=== PATIENT | male | born 1950 | race Caucasian/White ===

== ENCOUNTER → 2021-04-05 08:18 | Outpatient (CLI) | payer MEDICARE, SELFPAY ==
[2021-04-05 09:36] LABS: Alanine Aminotransferase 22 IU/L (<50); Albumin 3.7 g/dL (3.5-5.0); Albumin Globulin Ratio 1.3 (1.0-2.8); Alkaline Phosphatase 81 U/L (38-126); Aspartate Aminotransferase 35 IU/L (17-59); BUN Creatinine Ratio 22.4 (6-22); Bilirubin Total 0.5 mg/dL (0.2-1.3); Blood Urea Nitrogen 17 mg/dL (9-20); Calcium 9.3 mg/dL (8.4-10.2); Carbon Dioxide 28 mmol/L (22-32); Chloride 105 mmol/L (98-107); Cholesterol 210 mg/dL (140-199); Estimated Glomerular Filt Rate > 60.0 mL/min (>60); Globulin 2.8 g/dL (1.7-4.1); Glucose 89 mg/dL (80-110); HDL Cholesterol 57 mg/dL (40-60); HEMOLYSIS < 15 (0-50); LDL Cholesterol Calculated 117 mg/dL (<100); Sodium 139 mmol/L (137-145); Total Protein 6.5 g/dL (6.3-8.2); Triglycerides 182 mg/dL (35-150); Uric Acid 6.9 mg/dL (3.5-8.5)
== END ==
PROVIDERS: PCP Internal Medicine; Referring Provider Internal Medicine; Visit Provider Internal Medicine
DX: Z13.1 Encounter for screening for diabetes mellitus (principal); Z13.6 Encounter for screening for cardiovascular disorders; Z12.5 Encounter for screening for malignant neoplasm of prostate; Z13.220 Encounter for screening for lipoid disorders
CPT/HCPCS: 36415; 80053; 80061; 84550; G0103

== ENCOUNTER → 2021-05-20 14:04 | Outpatient (CLI) | payer MEDICARE, SELFPAY ==
[2021-05-20 14:24] LABS: Add Manual Diff / Slide Review NO; Basophils Absolute Auto 100 /uL (0-100); Basophils Percent Auto 0.9 % (0-2); Eosinophils Absolute Auto 100 /uL (0-450); Eosinophils Percent Auto 1.2 % (2-4); Hematocrit 43.4 % (41-53); Hemoglobin 14.4 g/dL (13.5-17.5); Lymphocytes Absolute Auto 1300 /uL (1100-4500); Lymphocytes Percent Auto 17.5 % (25-40); Mean Corpuscular HGB Conc 33.2 % (30-36); Mean Corpuscular Hemoglobin 31.9 PG (26-34); Mean Corpuscular Volume 95.8 fL (80-100); Monocytes Absolute Auto 600 /uL (0-900); Monocytes Percent Auto 7.9 % (3-14); Neutrophils Absolute Auto 5200 /uL (1500-7000); Neutrophils Percent Auto 72.5 % (50-75); Platelet Count 190 X10^3/uL (150-400); Red Blood Cell Count 4.53 X10^6/uL (4.5-5.9); White Blood Cell Count 7.2 X10^3/uL (4.5-11.0)
[2021-05-20 14:45] LABS: Alanine Aminotransferase 33 IU/L (<50); Albumin 4.6 g/dL (3.5-5.0); Albumin Globulin Ratio 1.6 (1.0-2.8); Alkaline Phosphatase 80 U/L (38-126); Aspartate Aminotransferase 42 IU/L (17-59); Bilirubin Total 0.7 mg/dL (0.2-1.3); Bilirubin Unconjugated 0.6 mg/dL (0.0-1.1); Globulin 2.8 g/dL (1.7-4.1); HEMOLYSIS < 15 (0-50); Total Protein 7.4 g/dL (6.3-8.2)
== END ==
PROVIDERS: PCP Internal Medicine; Referring Provider Naturopath; Visit Provider Naturopath
DX: B35.3 Tinea pedis (principal)
CPT/HCPCS: 36415; 80076; 85025

== ENCOUNTER → 2021-08-19 14:01 | Outpatient (CLI) | payer MEDICARE, SELFPAY ==
[2021-08-19 16:21] LABS: Alanine Aminotransferase 28 IU/L (<50); Albumin 4.4 g/dL (3.5-5.0); Albumin Globulin Ratio 1.5 (1.0-2.8); Alkaline Phosphatase 79 U/L (38-126); Aspartate Aminotransferase 36 IU/L (17-59); Bilirubin Total 0.6 mg/dL (0.2-1.3); Bilirubin Unconjugated 0.5 mg/dL (0.0-1.1); Globulin 2.9 g/dL (1.7-4.1); HEMOLYSIS < 15 (0-50); Total Protein 7.3 g/dL (6.3-8.2)
== END ==
PROVIDERS: PCP Internal Medicine; Referring Provider Physician Assistant; Visit Provider Physician Assistant
DX: B35.1 Tinea unguium (principal)
CPT/HCPCS: 36415; 80076

== ENCOUNTER → 2024-11-04 16:43 | Outpatient (CLI) | payer MEDICARE, SELFPAY ==
[2024-11-04 17:31] LABS: Influenza A - CEPHEID Flu A POSITIVE (NEGATIVE); Influenza B - CEPHEID Flu B NEGATIVE (NEGATIVE); Respiratory Syncytial Virus Negative (Negative)
[2024-11-04 17:33] LABS: COVID-19 CEPHEID 4-PLEX PCR Negative (Negative)
== END ==
PROVIDERS: PCP Internal Medicine; Visit Provider Physician Assistant Surgical
DX: R06.02 Shortness of breath (principal)
CPT/HCPCS: 0241U

== ENCOUNTER → 2024-11-04 16:59 | Outpatient (CLI) | payer MEDICARE, SELFPAY ==
--- NOTE | 2024-11-04 17:01 | DI.RAD.S_ITS ---
PROCEDURE: XR CHEST 2V INDICATIONS: Cough, SOB TECHNIQUE: 2 views of the chest were acquired. COMPARISON: None. FINDINGS: Surgical changes and devices: None. Lungs and pleura: Patchy bilateral opacities. Mediastinum: Mediastinal contours are normal. Heart size is normal. Bones and chest wall: No suspicious bony abnormalities. Soft tissues appear unremarkable. IMPRESSION: Patchy bilateral passages concerning for multifocal pneumonia. Recommend follow-up in 1-2 months with chest x-ray to ensure resolution. Dictated by: Juan Armstrong M.D. on 11/04/2024 at 17:42 Approved by: Juan Armstrong M.D. on 11/04/2024 at 17:42
== END ==
PROVIDERS: PCP Internal Medicine; Referring Provider Physician Assistant Surgical; Visit Provider Physician Assistant Surgical
DX: R05.9 Cough, unspecified (principal); R06.02 Shortness of breath
CPT/HCPCS: 0241U; 71046

== ENCOUNTER 2024-11-11 14:55 | Inpatient (IN) | payer MEDICARE, SELFPAY ==
[2024-11-11] VITALS (17 sets, daily range): BP systolic 124–166; BP diastolic 73–100; PULSE 65–95; RESP 12–30; TEMP 36.7–37.2; O2SAT 87–97; BMI 26.6; BMI 25.2
--- NOTE | 2024-11-11 15:05 | DI.RAD.S_ITS ---
PROCEDURE: XR CHEST 1V INDICATIONS: Shortness of breath TECHNIQUE: One view of the chest was acquired. COMPARISON: [facility], , XR CHEST 2V, 11/04/2024, 17:06. FINDINGS: Surgical changes and devices: None. Lungs and pleura: Bilateral patchy pulmonary opacities, not significantly changed in distribution when compared to the exam from 11/04/2024. No pleural effusion or pneumothorax. Mediastinum: Mediastinal contours appear normal. Heart size is normal. Bones and chest wall: No suspicious bony lesions. Overlying soft tissues appear unremarkable. IMPRESSION: Persistent patchy airspace opacities. Approved by: Froilan Martínez M.D. on 11/11/2024 at 15:29
--- NOTE | 2024-11-11 15:10 | EKG_ITS ---
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
[2024-11-11 15:28] LABS: Add Manual Diff / Slide Review NO; Basophils Absolute Auto 100 /uL (0-100); Eosinophils Absolute Auto 100 /uL (0-450); Eosinophils Percent Auto 0.9 % (2-4); Hematocrit 39.3 % (41-53); Hemoglobin 13.6 g/dL (13.5-17.5); Lymphocytes Absolute Auto 700 /uL (1100-4500); Lymphocytes Percent Auto 7.4 % (25-40); Mean Corpuscular HGB Conc 34.5 % (30-36); Mean Corpuscular Hemoglobin 31.5 PG (26-34); Mean Corpuscular Volume 91.1 fL (80-100); Monocytes Absolute Auto 1400 /uL (0-900); Monocytes Percent Auto 14.9 % (3-14); Neutrophils Absolute Auto 7100 /uL (1500-7000); Neutrophils Percent Auto 75.8 % (50-75); Platelet Count 492 X10^3/uL (150-400); Red Blood Cell Count 4.31 X10^6/uL (4.5-5.9); Red Cell Distribution Width 12.8 % (11.6-14.8); White Blood Cell Count 9.4 X10^3/uL (4.5-11.0)
[2024-11-11 15:33] LABS: INR 1.2 (0.9-1.3)
[2024-11-11 15:41] LABS: Alanine Aminotransferase 110 IU/L (<50); Albumin 3.7 g/dL (3.5-5.0); Albumin Globulin Ratio 0.9 (1.0-2.8); Alkaline Phosphatase 187 U/L (38-126); Aspartate Aminotransferase 93 IU/L (17-59); BUN Creatinine Ratio 12.9 (6-22); Bilirubin Total 1.7 mg/dL (0.2-1.3); Blood Urea Nitrogen 12 mg/dL (9-20); Carbon Dioxide 27 mmol/L (22-32); Chloride 96 mmol/L (98-107); Estimated Glomerular Filt Rate > 60 mL/min (>60); Globulin 3.9 g/dL (1.7-4.1); Glucose 109 mg/dL (80-110); HEMOLYSIS < 15 (0-50); Potassium 3.5 mmol/L (3.4-5.1); Sodium 132 mmol/L (137-145); Total Protein 7.6 g/dL (6.3-8.2)
[2024-11-11 15:42] LABS: Lactate (Lactic Acid) 1.3 mmol/L (0.7-2.1)
[2024-11-11 15:51] LABS: NT-proBNP (BNP-Adult 18+) 100 pg/mL (<125); Troponin I < 0.012 ng/mL (0.01-0.034)
--- NOTE | 2024-11-11 18:16 | ED.SOB ---
HPI - SOB/Dyspnea General Chief Complaint: Shortness of Breath/Dyspnea Stated Complaint: states low o2 sats Time Seen by Provider: 11/11/24 17:57 Source: patient Mode of arrival: Ambulatory Limitations: no limitations History of Present Illness HPI Narrative: Patient is 74-year-old male presenting today with low-grade intermittent fevers for 1 week some mild nasal congestion reports a productive cough that started 2 days ago. Feeling more short of breath with exertion. He was seen evaluated at walk-in clinic on November 04 2024 started on amoxicillin and azithromycin. Is positive for influenza A at that time and also had an x-ray suggestive of multifocal pneumonia. He reports he is having increasing shortness of breath with exertion he was some conversational dyspnea. He generally feels like he has not improved over the course of 1 week. He only has a couple days left of the amoxicillin but finished a Z-Jose. He has been in bed not really getting up. Found to be hypoxic at 86% on room air in the ED. does have decrease in appetite as well. Related Data Previous Rx's Medication Instructions Recorded benzonatate 200 mg capsule 200 mg PO BID PRN cough #30 caps 11/04/24 Allergies Allergy/AdvReac Type Severity Reaction Status Date / Time No Known Drug Allergies Allergy Verified 11/11/24 14:54 Patient History Medical History Fractures (~1971) Surgical History Anesthesia History of arthroscopic knee surgery (~2007) History of hernia repair (~2016) S/P LASIK surgery of both eyes (~2005) Family History Father History of heart disease Mother Cancer Congestive heart failure Social History household members: none Smoking Status: Current some day smoker alcohol intake: current Smoking Status: Never smoker Exam Initial Vital Signs Initial Vital Signs: Vital Signs Pulse Rate 87 11/11/24 15:01 Respiratory Rate 30 H 11/11/24 15:01 Pulse Oximetry 87 L 11/11/24 15:01 Oxygen Delivery Method Room Air 11/11/24 15:01 GENERAL: Alert awake 74-year-old male HEENT: Head atraumatic,EOMI, pupils reactive, face symmetric, moist mucous membranes CARDIOVASCULAR: Regular rate and rhythm without murmurs, rubs or gallops. RESPIRATORY: Mild conversational dyspnea no significant wheezing no crackles ABDOMEN: Soft, nontender. Normoactive bowel sounds all 4 quadrants. No guarding or rebound. EXTREMITIES: Normal range of motion, no clubbing or edema. Neurovascularly intact NEUROLOGICAL: Alert and oriented x4.Normal gait and speech. Cranial nerves II through XII grossly intact. SKIN: Warm, dry, no laceration, no petechiae, no rashes or lesions. Course Orders Ordered: ED Orders 11/11/24 18:28 CT angio chest PE protocol Stat 11/11/24 18:50 Blood Culture Stat Acetaminophen (Acetaminophen 325 Mg Tablet) 650 mg PO Q6H PRN PRN Reason: Fever/Mild Pain (1-3) Enoxaparin Sodium (Enoxaparin 40 Mg/0.4 Ml Syringe) 40 mg SUBCUT DAILY KARLI Levofloxacin (Levaquin) 750 mg in 150 mls @ 100 mls/hr IV Q24H [facility] Stop: 11/16/24 19:59 Naloxone HCl (Naloxone 0.4 Mg/Ml Vial) 0.2 mg IV Q2MIN PRN PRN Reason: Opiate Reversal Discontinued Medications Albuterol (Albuterol 2.5 Mg/3 Ml Neb (Adult)) 2.5 mg INH NOW ONE Stop: 11/11/24 18:29 Last Admin: 11/11/24 18:35 Dose: 2.5 mg Documented By: JOSEPH Levofloxacin (Levaquin) 750 mg in 150 mls @ 100 mls/hr IV NOW ONE Stop: 11/11/24 21:32 Last Infusion: 11/11/24 21:57 Dose: Infused Documented By: Infusion: 11/11/24 20:58 Dose: 100 mls/hr Documented By: Admin: 11/11/24 20:14 Dose: 100 mls/hr Documented By: ZAFAR Vital Signs Vital signs: Vital Signs - 8 hr 11/11/24 17:00 11/11/24 17:30 11/11/24 17:43 Pulse Rate 80 81 84 Respiratory Rate 22 12 23 Blood Pressure Pulse Oximetry 97 92 92 Oxygen Delivery Method Nasal Cannula Nasal Cannula Nasal Cannula Oxygen Flow Rate 2 2 2 11/11/24 17:43 11/11/24 18:00 11/11/24 18:00 Pulse Rate 82 Respiratory Rate 20 Blood Pressure 133/78 124/73 Pulse Oximetry 94 Oxygen Delivery Method Nasal Cannula Oxygen Flow Rate 2 11/11/24 18:30 11/11/24 18:30 11/11/24 19:38 Pulse Rate 93 H 95 H Respiratory Rate 23 Blood Pressure 149/78 H Pulse Oximetry 94 93 Oxygen Delivery Method Nasal Cannula Oxygen Flow Rate 2 11/11/24 19:39 11/11/24 19:39 11/11/24 20:00 Pulse Rate 94 H 94 H Respiratory Rate 18 15 Blood Pressure 143/83 H Pulse Oximetry 94 93 Oxygen Delivery Method Nasal Cannula Nasal Cannula Oxygen Flow Rate 2 2 11/11/24 20:00 Pulse Rate Respiratory Rate Blood Pressure 143/87 H Pulse Oximetry Oxygen Delivery Method Oxygen Flow Rate MDM - SOB/Dyspnea Lab Data 11/11/24 15:18 11/11/24 15:18 Labs: Lab Results 11/11/24 Range/Units 15:18 WBC 9.4 (4.5-11.0) X10^3/uL RBC 4.31 L (4.5-5.9) X10^6/uL Hgb 13.6 (13.5-17.5) g/dL Hct 39.3 L (41-53) % MCV 91.1 (80-100) fL MCH 31.5 (26-34) PG MCHC 34.5 (30-36) % RDW 12.8 (11.6-14.8) % Plt Count 492 H (150-400) X10^3/uL Neut % (Auto) 75.8 H (50-75) % Lymph % (Auto) 7.4 L (25-40) % [place] % (Auto) 14.9 H (3-14) % Eos % (Auto) 0.9 L (2-4) % Baso % (Auto) 1.0 (0-2) % Neut # (Auto) 7100 H (5992-3977) /uL Lymph # (Auto) 700 L (1889-6799) /uL [place] # (Auto) 1400 H (0-900) /uL Eos # (Auto) 100 (0-450) /uL Baso # (Auto) 100 (0-100) /uL PT 14.0 H (9.4-12.5) SECONDS INR 1.2 (0.9-1.3) Sodium 132 L (137-145) mmol/L Potassium 3.5 (3.4-5.1) mmol/L Chloride 96 L (98-107) mmol/L Carbon Dioxide 27 (22-32) mmol/L BUN 12 (9-20) mg/dL Creatinine 0.93 (0.66-1.25) mg/dL Estimated GFR > 60 (>60) mL/min BUN/Creatinine Ratio 12.9 (6-22) Glucose 109 (80-110) mg/dL Lactate 1.3 (0.7-2.1) mmol/L Calcium 8.0 L (8.4-10.2) mg/dL Total Bilirubin 1.7 H (0.2-1.3) mg/dL AST 93 H (17-59) IU/L ALT 110 H (<50) IU/L Alkaline Phosphatase 187 H (38-126) U/L Troponin I < 0.012 (0.01-0.034) ng/mL NT-Pro-B Natriuret Pep 100 (<125) pg/mL Total Protein 7.6 (6.3-8.2) g/dL Albumin 3.7 (3.5-5.0) g/dL Globulin 3.9 (1.7-4.1) g/dL Albumin/Globulin Ratio 0.9 L (1.0-2.8) Imaging Data Chest x-ray: Radiologist's Impression: PROCEDURE: XR CHEST 1V INDICATIONS: Shortness of breath TECHNIQUE: One view of the chest was acquired. COMPARISON: [facility], , XR CHEST 2V, 11/04/2024, 17:06. FINDINGS: Surgical changes and devices: None. Lungs and pleura: Bilateral patchy pulmonary opacities, not significantly changed in distribution when compared to the exam from 11/04/2024. No pleural effusion or pneumothorax. Mediastinum: Mediastinal contours appear normal. Heart size is normal. Bones and chest wall: No suspicious bony lesions. Overlying soft tissues appear unremarkable. IMPRESSION: Persistent patchy airspace opacities. Approved by: Froilan Martínez M.D. on 11/11/2024 at 15:29 CT scan - chest: Radiologist's Impression: PROCEDURE: CT ANGIO CHEST PE PROTOCOL INDICATIONS: hypoxia TECHNIQUE: After the administration of intravenous contrast, 2 mm thick sections acquired from the pulmonary apices to the posterior costophrenic angles. 3-dimensional maximum intensity projection (MIP) coronal and sagittal reformats were then acquired through the thorax. For radiation dose reduction, the following was used: automated exposure control, adjustment of mA and/or kV according to patient size. COMPARISON: None. FINDINGS: Image quality: Diagnostic. Pulmonary arteries: Pulmonary arteries are normal in size, and demonstrate no intraluminal filling defects to suggest central pulmonary embolism. Lower Neck: No enlarged lymph nodes. Thyroid: No thyroid nodules which require sonographic follow up, per consensus guidelines. Axillae: No enlarged lymph nodes. Chest Wall: Unremarkable. Bones: Irregular attenuation the T7 vertebral body. Lungs and Pleura: No pneumothorax or pleural effusions. Peripheral consolidation affecting all lobes. Heart: Heart size is normal. No pericardial effusion. Thoracic Vessels: No aortic aneurysm. Mediastinum and Joana: No enlarged lymph nodes. Esophagus: No wall thickening. Small hiatal hernia. Upper Abdomen: Visualized upper abdomen solid organs and bowel loops appear normal. IMPRESSION: No pulmonary embolus. Severe multifocal viral/atypical pneumonia. Heterogeneous attenuation of the T7 vertebral body, raises the concern for underlying bony lesions such as metastatic disease. Consider outpatient MRI with contrast (thoracic spine). Dictated by: Juan Armstrong M.D. on 11/11/2024 at 19:50 ECG Data Attestation: I personally reviewed and interpreted this ECG as follows: Prior ECG tracings: available for review Interpretation: Normal sinus rhythm rate 69 FL interval 172 QRS [address] changes no priors to compare T-wave inversion noted in lead 3 only MDM Narrative Medical decision making narrative: MDM CC: Shortness of breath Complicating co-morbidities: Healthy male Medical records reviewed: Walk-in clinic records reviewed he was placed on amoxicillin however patient says that he was also given a Z-Jose. He did test positive for influenza A at that visit Differential considered: Pneumonia CHF pulmonary embolism reactive airway disease Exam documented above, pertinent findings include: Awake alert 74-year-old male mild conversational dyspnea no significant tachypnea no peripheral edema Lab Test results independently reviewed as above. Pertinent findings: WBC 9.4, lactate 1.3 Sodium 132 potassium 3.5 chloride 96 carbon dioxide 27 BUN 12 creatinine 0.93 BNP 100 troponin negative Independently reviewed EKG as above Imaging studies independently reviewed: Chest x-ray patchy airspace opacities CT angio does not show evidence of pulmonary embolism but does show severe multifocal pneumonia Consultations: Dr. Lopez updated on patient's symptoms test results Treatments: Levaquin albuterol Re-evaluations: Patient was given albuterol he does feel like he can take a deeper breath a noticed less conversational dyspnea and reactive coughing Discussion: Patient is 74-year-old male with known infection of influenza a and pneumonia already been on amoxicillin azithromycin presenting today with increasing hypoxia and shortness of breath. He was found to have severe multifocal pneumonia along with influenza a requiring oxygen. Surprisingly blood work is overall reassuring without signs of severe sepsis. Blood cultures are pending. He was given a dose of IV Levaquin, after already being on amoxicillin and azithromycin. Discharge Plan Departure Patient Disposition: Admitted As Inpatient Clinical Impression: Influenza A, Pneumonia, Hypoxia Admit Date/Time: 11/11/24 20:17 Admit Provider: Doris Martinez
--- NOTE | 2024-11-11 18:28 | DI.CT.S_ITS ---
PROCEDURE: CT ANGIO CHEST PE PROTOCOL INDICATIONS: hypoxia TECHNIQUE: After the administration of intravenous contrast, 2 mm thick sections acquired from the pulmonary apices to the posterior costophrenic angles. 3-dimensional maximum intensity projection (MIP) coronal and sagittal reformats were then acquired through the thorax. For radiation dose reduction, the following was used: automated exposure control, adjustment of mA and/or kV according to patient size. COMPARISON: None. FINDINGS: Image quality: Diagnostic. Pulmonary arteries: Pulmonary arteries are normal in size, and demonstrate no intraluminal filling defects to suggest central pulmonary embolism. Lower Neck: No enlarged lymph nodes. Thyroid: No thyroid nodules which require sonographic follow up, per consensus guidelines. Axillae: No enlarged lymph nodes. Chest Wall: Unremarkable. Bones: Irregular attenuation the T7 vertebral body. Lungs and Pleura: No pneumothorax or pleural effusions. Peripheral consolidation affecting all lobes. Heart: Heart size is normal. No pericardial effusion. Thoracic Vessels: No aortic aneurysm. Mediastinum and Joana: No enlarged lymph nodes. Esophagus: No wall thickening. Small hiatal hernia. Upper Abdomen: Visualized upper abdomen solid organs and bowel loops appear normal. IMPRESSION: No pulmonary embolus. Severe multifocal viral/atypical pneumonia. Heterogeneous attenuation of the T7 vertebral body, raises the concern for underlying bony lesions such as metastatic disease. Consider outpatient MRI with contrast (thoracic spine). Dictated by: Juan Armstrong M.D. on 11/11/2024 at 19:50 Approved by: Juan Armstrong M.D. on 11/11/2024 at 19:53
[2024-11-11] MEDS: ALBUTEROL 2.5 MG/3 ML NEB (ADULT) INH (18:35)
[2024-11-11] MEDS: levoFLOXacin 750 MG/150 ML PIGGYBACK 100 MG IV (20:14)
[2024-11-12] VITALS (8 sets, daily range): BP systolic 120–150; BP diastolic 71–84; PULSE 50–78; RESP 18–21; TEMP 26.6–36.8; O2SAT 93–96
[2024-11-12] MEDS: ENOXAPARIN 40 MG/0.4 ML SYRINGE SUBCUT (09:57)
[2024-11-12] MEDS: cefTRIAXone 1,000 MG in SODIUM CHLORIDE 0.9% 100 ML 200 MG IV (09:58)
--- NOTE | 2024-11-12 10:47 | P.HP_ITS ---
History of Present Illness History of Present Illness Date Patient Seen: 11/12/24 Time Patient Seen: 08:30 Chief complaint: states low o2 sats Narrative: S: The patient has been ill for 10-14 days. He initially had viral symptoms consistent with flu as well as profound fatigue and anorexia. Also was somewhat short of breath. He tested positive for influenza about a week ago. He was given oral antibiotics for possible infiltrates on x-ray at the urgent care and really failed to improve. He bought an oximeter yesterday and found his saturations to be 84% on room air. He presented to the urgent care and then was transferred to the ED. There he was found to have bilateral infiltrates but a CTA was negative for pulmonary embolism. He was started on antibiotics. RLS: Cough, mostly nonproductive. Dyspnea on exertion. General fatigue, and severe anorexia. No diarrhea. This patient was initially not admitted to the hospitalist service, I found out about the patient from that service on the morning of November 12 at approximately 8:00 a.m.. No documentation other than the emergency physician was in the record when I assumed care of the patient. REPLACED BY [facility] Medical History Fractures (~1971) Surgical History Anesthesia S/P LASIK surgery of both eyes (~2005) History of arthroscopic knee surgery (~2007) History of hernia repair (~2016) Family History Father History of heart disease Mother Cancer Congestive heart failure Social History household members: none Smoking Status: Current some day smoker alcohol intake: current Meds Home Medications and Allergies Home Medications Medication Instructions Recorded Confirmed Type benzonatate 200 mg capsule 200 mg PO BID PRN cough #30 caps 11/04/24 11/11/24 Rx Allergies Allergy/AdvReac Type Severity Reaction Status Date / Time No Known Drug Allergies Allergy Verified 11/11/24 14:54 Review of Systems Review of Systems Narrative: All else reviewed and otherwise unremarkable except as noted in the history and physical. Exam Vital Signs (past 8 hours): - 11/12/24 04:00 11/12/24 07:23 11/12/24 08:00 Temperature 98.2 F Pulse Rate 50 L Respiratory Rate 19 Blood Pressure 122/76 Pulse Oximetry 96 96 Oxygen Delivery Method Nasal Cannula Nasal Cannula Oxygen Flow Rate 2.5 2.5 11/12/24 08:00 Temperature 97.8 F Pulse Rate 74 Respiratory Rate 18 Blood Pressure 150/71 H Pulse Oximetry 94 Oxygen Delivery Method Oxygen Flow Rate 2 Oxygen Delivery Method Nasal Cannula Oxygen Flow Rate 2 Narrative Exam Narrative: NAD, alert and oriented, fluent speech, calm. Normocephalic skull, EOMI, anicteric sclera, symmetric pupils. Oropharynx unremarkable, no droop. Neck supple, midline trachea, no adenopathy. Lungs are notable for scattered rhonchi and diminished breath sounds in the bases, normal rate and effort. Heart regular, no murmur gallop or rub. Abdomen is soft, non distended and non tender. Extremities are free of edema. Skin is free of rash or lesions. Joints are not swollen or deformed. Judgment appears to be normal. Objective ECG Impression: Sinus rhythm with premature atrial complexes Minimal voltage criteria for LVH, may be normal variant ( R in aVL ) Imaging Multiple studies:: Radiologist's impression: Chest x-ray: Persistent patchy airspace opacities.). Chest CTA: No pulmonary embolus. Severe multifocal viral/atypical pneumonia. Heterogeneous attenuation of the T7 vertebral body, raises the concern for underlying bony lesions such as metastatic disease. Consider outpatient MRI with contrast (thoracic spine). Labs 11/11/24 15:18 11/11/24 15:18 Labs: Laboratory Results - last 24 hr 11/11/24 15:18 WBC 9.4 RBC 4.31 L Hgb 13.6 Hct 39.3 L MCV 91.1 MCH 31.5 MCHC 34.5 RDW 12.8 Plt Count 492 H Neut % (Auto) 75.8 H Lymph % (Auto) 7.4 L [place] % (Auto) 14.9 H Eos % (Auto) 0.9 L Baso % (Auto) 1.0 Neut # (Auto) 7100 H Lymph # (Auto) 700 L [place] # (Auto) 1400 H Eos # (Auto) 100 Baso # (Auto) 100 PT 14.0 H INR 1.2 Sodium 132 L Potassium 3.5 Chloride 96 L Carbon Dioxide 27 BUN 12 Creatinine 0.93 Estimated GFR > 60 BUN/Creatinine Ratio 12.9 Glucose 109 Lactate 1.3 Calcium 8.0 L Total Bilirubin 1.7 H AST 93 H ALT 110 H Alkaline Phosphatase 187 H Troponin I < 0.012 NT-Pro-B Natriuret Pep 100 Total Protein 7.6 Albumin 3.7 Globulin 3.9 Albumin/Globulin Ratio 0.9 L Assessment & Plan Assessment & Plan narrative: 1. Influenza a, present on admission and active. 2. Probable secondary bacterial pneumonia, present on admission and active. 3. Possible T7 compression fracture versus other acute process, present on admission and active. Plan: -continue IV antibiotics -wean oxygen as able. -follow up blood cultures. -assess for thoracic pain. LOURDES is November 14. Time-Based Coding :: 40 min spent with patient and on the chart (including review of chart, obtaining history, exam, reviewing outside data, placing orders, documenting exam and treatment plan, and counseling patient) on 11/12. Quality MIPS - Admit I confirm the patient?s Advance Care Plan is present, Code status is documented, Surrogate decision maker is in patient?s record [If Yes, STOP here]: Yes MIPS - Meds 'Current medications' to include all prescriptions, [id number] products, herbals, cannabis/cannabidiol products, and vitamin/mineral/dietary (nutritional) supplements. I have utilized all available resources to obtain, update, or review the patient?s current medications. [If Yes, STOP here]: Yes
--- NOTE | 2024-11-12 13:43 | CM.DANOTE ---
Initial DCP Assessment Note Pt is a 74 yo male, lives on his boat in [facility], presents with persistent low o2 sats, SOB, feeling ill. Patient admitted for management of Flu A+, PNA. PCP: not established Payer: [facility] Contacts: Froilan Ortega, John Ortega, Leann Llamaskelly (sign. other)[phone] Reviewed chart, pt discussed in multidisciplinary rounds this morning. LOURDES 11/14. Met w/patient; patient lives independently on his boat and has for years. Patient has a SO, Mark, with whom he travels with. Mark lives in [place]. Patient's sons live in [place] and [place]. Patient appears to be at his cognitive and functional baseline and is expected to return to his boat when medically cleared for discharge. No barriers identified at this time to patient's safe discharge home w/family to assist; close outpatient f/u recommended. CM team will plan to follow clinical course closely in case any DC needs or concerns arise. CIELO Chery Discharge Planning/Care Management CM Discharge Assessment Start: 11/12/24 13:40 Freq: Status: Active Protocol: Document 11/12/24 13:41 [email or web address] (Rec: 11/12/24 13:43 [email or web address] [id number]) Discharge Planning Assessment Assigned Junior Brand Manager CIELO Forrester DPOA/Assigned Designee Name Froilan Ortega, son ([place]) Contact Information [phone] Advance Directives? No History Provided By Patient,Medical Record Prior Living Arrangements Other Comment Patient lives on his boat, which is in the [facility] Household Members none Type of transporation used prior to Drives own vehicle admit Independent with ADL's Yes Is patient alert and oriented? Yes Barriers to Discharge No Discharge Plan Home Transportation Arrangement Self,patient's car is in the parking lot Referrals Initiated None needed
--- NOTE | 2024-11-12 17:41 | PC.NURSE ---
Assumed care of pt during afternoon of shift. Pt stable throughout shift. NC O2 weaned from 2L to 1L. Pt up to toilet and around room SBA. Denied pain.
[2024-11-12] MEDS: levoFLOXacin 750 MG/150 ML PIGGYBACK 100 MG IV (20:35)
[2024-11-13] VITALS: BP 124/73; PULSE 75; RESP 18; TEMP 37.1; O2SAT 92
[2024-11-13 04:00] VITALS: BP 121/77; PULSE 86; RESP 18; TEMP 36.1; O2SAT 94
[2024-11-13 04:56] LABS: Add Manual Diff / Slide Review NO; Basophils Absolute Auto 0 /uL (0-100); Basophils Percent Auto 0.5 % (0-2); Eosinophils Absolute Auto 100 /uL (0-450); Eosinophils Percent Auto 1.3 % (2-4); Hematocrit 35.5 % (41-53); Hemoglobin 12.2 g/dL (13.5-17.5); Lymphocytes Absolute Auto 700 /uL (1100-4500); Lymphocytes Percent Auto 9.2 % (25-40); Mean Corpuscular HGB Conc 34.4 % (30-36); Mean Corpuscular Hemoglobin 31.4 PG (26-34); Mean Corpuscular Volume 91.1 fL (80-100); Monocytes Absolute Auto 1100 /uL (0-900); Monocytes Percent Auto 14.6 % (3-14); Neutrophils Absolute Auto 5600 /uL (1500-7000); Neutrophils Percent Auto 74.4 % (50-75); Platelet Count 491 X10^3/uL (150-400); Red Cell Distribution Width 12.7 % (11.6-14.8); White Blood Cell Count 7.6 X10^3/uL (4.5-11.0)
[2024-11-13 05:22] LABS: Alanine Aminotransferase 111 IU/L (<50); Albumin 3.3 g/dL (3.5-5.0); Albumin Globulin Ratio 0.9 (1.0-2.8); Alkaline Phosphatase 170 U/L (38-126); Aspartate Aminotransferase 95 IU/L (17-59); BUN Creatinine Ratio 12.2 (6-22); Bilirubin Total 1.2 mg/dL (0.2-1.3); Blood Urea Nitrogen 10 mg/dL (9-20); Calcium 8.2 mg/dL (8.4-10.2); Carbon Dioxide 28 mmol/L (22-32); Chloride 97 mmol/L (98-107); Estimated Glomerular Filt Rate > 60 mL/min (>60); Globulin 3.7 g/dL (1.7-4.1); Glucose 104 mg/dL (80-110); HEMOLYSIS < 15 (0-50); Potassium 3.5 mmol/L (3.4-5.1); Sodium 134 mmol/L (137-145)
--- NOTE | 2024-11-13 07:45 | P.PN_ITS ---
Subjective Subjective Interval history: Summary: The patient has been ill for 10-14 days. He initially had viral symptoms consistent with flu as well as profound fatigue and anorexia. Also was somewhat short of breath. He tested positive for influenza about a week ago. He was given oral antibiotics for possible infiltrates on x-ray at the urgent care and really failed to improve. He bought an oximeter yesterday and found his saturations to be 84% on room air. He presented to the urgent care and then was transferred to the ED. There he was found to have bilateral infiltrates but a CTA was negative for pulmonary embolism. He was started on antibiotics. This patient was initially not admitted to the hospitalist service, I found out about the patient from that service on the morning of November 12 at approximately 8:00 a.m.. No documentation other than the emergency physician was in the record when I assumed care of the patient. S: Exam Vital Signs (past 8 hours): - 11/13/24 00:00 11/13/24 04:00 Temperature 98.7 F 97.0 F L Pulse Rate 75 86 Respiratory Rate 18 18 Blood Pressure 124/73 121/77 Pulse Oximetry 92 94 Oxygen Flow Rate 1 1 Oxygen Delivery Method Nasal Cannula Oxygen Flow Rate 1 Narrative Exam Narrative: NAD, alert and oriented. Fluent speech. Lungs are clear, normal rate and effort. Heart is regular, no murmur gallop or rub. Abdomen is soft, non distended. Extremities are free of edema. Objective ECG Impression: Sinus rhythm with premature atrial complexes Minimal voltage criteria for LVH, may be normal variant ( R in aVL ) Imaging Multiple studies: : Radiologist's impression: Chest x-ray: Persistent patchy airspace opacities.). Chest CTA: No pulmonary embolus. Severe multifocal viral/atypical pneumonia. Heterogeneous attenuation of the T7 vertebral body, raises the concern for underlying bony lesions such as metastatic disease. Consider outpatient MRI with contrast (thoracic spine). Labs 11/13/24 04:00 11/13/24 04:00 Labs: Laboratory Results - last 24 hr 11/13/24 04:00 WBC 7.6 RBC 3.90 L Hgb 12.2 L Hct 35.5 L MCV 91.1 MCH 31.4 MCHC 34.4 RDW 12.7 Plt Count 491 H Neut % (Auto) 74.4 Lymph % (Auto) 9.2 L [place] % (Auto) 14.6 H Eos % (Auto) 1.3 L Baso % (Auto) 0.5 Neut # (Auto) 5600 Lymph # (Auto) 700 L [place] # (Auto) 1100 H Eos # (Auto) 100 Baso # (Auto) 0 Sodium 134 L Potassium 3.5 Chloride 97 L Carbon Dioxide 28 BUN 10 Creatinine 0.82 Estimated GFR > 60 BUN/Creatinine Ratio 12.2 Glucose 104 Calcium 8.2 L Total Bilirubin 1.2 AST 95 H ALT 111 H Alkaline Phosphatase 170 H Total Protein 7.0 Albumin 3.3 L Globulin 3.7 Albumin/Globulin Ratio 0.9 L PFS Medical History Fractures (~1971) Surgical History Anesthesia S/P LASIK surgery of both eyes (~2005) History of arthroscopic knee surgery (~2007) History of hernia repair (~2016) Family History Father History of heart disease Mother Cancer Congestive heart failure Social History household members: none Smoking Status: Current some day smoker alcohol intake: current Assessment & Plan Assessment & Plan narrative: 1. Influenza a, present on admission and active. 2. Probable secondary bacterial pneumonia, present on admission and active. 3. Possible T7 compression fracture versus other acute process, present on admission and active. PLAN: -continue antibiotics -follow cultures -MRI T-spine. -discuss with pulmonary. LOURDES: 11/15. Time-Based Coding :: [TOTAL MINUTES] spent with patient and on the chart (including review of chart, obtaining history, exam, reviewing outside data, placing orders, documenting exam and treatment plan, and counseling patient) on [DATE].
[2024-11-13 08:00] VITALS: BP 126/70; PULSE 80; RESP 17; TEMP 36.6; O2SAT 95
[2024-11-13 08:30] VITALS: O2SAT 95
[2024-11-13] MEDS: ENOXAPARIN 40 MG/0.4 ML SYRINGE SUBCUT (08:31)
[2024-11-13] MEDS: cefTRIAXone 1,000 MG in SODIUM CHLORIDE 0.9% 100 ML 200 MG IV (08:31)
[2024-11-13 12:00] VITALS: BP 109/73; PULSE 86; RESP 19; TEMP 36.8; O2SAT 96
--- NOTE | 2024-11-13 15:12 | PM.DS.1 ---
History of Present Illness History of Present Illness Chief complaint: states low o2 sats Narrative: S: The patient has been ill for 10-14 days. He initially had viral symptoms consistent with flu as well as profound fatigue and anorexia. Also was somewhat short of breath. He tested positive for influenza about a week ago. He was given oral antibiotics for possible infiltrates on x-ray at the urgent care and really failed to improve. He bought an oximeter yesterday and found his saturations to be 84% on room air. He presented to the urgent care and then was transferred to the ED. There he was found to have bilateral infiltrates but a CTA was negative for pulmonary embolism. He was started on antibiotics. RLS: Cough, mostly nonproductive. Dyspnea on exertion. General fatigue, and severe anorexia. No diarrhea. This patient was initially not admitted to the hospitalist service, I found out about the patient from that service on the morning of November 12 at approximately 8:00 a.m.. No documentation other than the emergency physician was in the record when I assumed care of the patient. Discharge Providers Provider Date of admission: 11/11/24 20:17 Discharge Date: 11/13/24 Primary care physician: Balta Ramirez MD Consults: None Discharge provider: Sergey Oconnor MD Summary Hospital Course Discharge Diagnosis: 1. Influenza a, present on admission and improved. 2. Probable secondary bacterial pneumonia, present on admission and improved. 3. Acute hypoxic respiratory failure, present on admission and resolved. 3. Possible T7 compression fracture versus other acute process, present on admission and active. Hospital Course: He was admitted for acute hypoxic respiratory failure. This in context of a recent diagnosis of influenza and a course of antibiotics. He was treated with antibiotics and improved was able to wean off from oxygen overnight. He does have evidence of a possible T7 compression fracture that may require further investigation over the next several weeks with his primary care provider. In terms of his breathing he was able to wean off from oxygen and was improved dramatically. His son did come from the [facility] and was able to be with him during his discharge. The patient will follow up with me by phone over the weekend in his asked to see his primary care within the next week. He will use incentive spirometer as well. Status at Discharge Cognitive/behavioral status at discharge: oriented Time Spent with Patient Time spent: Greater than 30 minutes Exam Vital Signs (past 8 hours): - 11/13/24 08:00 11/13/24 08:30 11/13/24 12:00 Temperature 97.9 F 98.3 F Pulse Rate 80 86 Respiratory Rate 17 19 Blood Pressure 126/70 109/73 Pulse Oximetry 95 95 96 Oxygen Delivery Method Room Air Oxygen Flow Rate 0 0 Oxygen Delivery Method Room Air Oxygen Flow Rate 0 Narrative Exam Narrative: NAD, alert and oriented. Fluent speech. Mild anxiety, some rhinorrhea. Lungs are clear, normal rate and effort. There is some scattered rhonchi. No wheezing. Heart is regular, no murmur gallop or rub. Abdomen is soft, non distended. Extremities are free of edema. Objective ECG Impression: Sinus rhythm with premature atrial complexes Minimal voltage criteria for LVH, may be normal variant ( R in aVL ) Imaging Multiple studies: : Radiologist's impression: Chest x-ray: Persistent patchy airspace opacities.). Chest CTA: No pulmonary embolus. Severe multifocal viral/atypical pneumonia. Heterogeneous attenuation of the T7 vertebral body, raises the concern for underlying bony lesions such as metastatic disease. Consider outpatient MRI with contrast (thoracic spine). Labs 11/13/24 04:00 11/13/24 04:00 Labs: Laboratory Results - last 24 hr 11/13/24 04:00 WBC 7.6 RBC 3.90 L Hgb 12.2 L Hct 35.5 L MCV 91.1 MCH 31.4 MCHC 34.4 RDW 12.7 Plt Count 491 H Neut % (Auto) 74.4 Lymph % (Auto) 9.2 L [place] % (Auto) 14.6 H Eos % (Auto) 1.3 L Baso % (Auto) 0.5 Neut # (Auto) 5600 Lymph # (Auto) 700 L [place] # (Auto) 1100 H Eos # (Auto) 100 Baso # (Auto) 0 Sodium 134 L Potassium 3.5 Chloride 97 L Carbon Dioxide 28 BUN 10 Creatinine 0.82 Estimated GFR > 60 BUN/Creatinine Ratio 12.2 Glucose 104 Calcium 8.2 L Total Bilirubin 1.2 AST 95 H ALT 111 H Alkaline Phosphatase 170 H Total Protein 7.0 Albumin 3.3 L Globulin 3.7 Albumin/Globulin Ratio 0.9 L PFSH Medical History Fractures (~1971) Surgical History Anesthesia S/P LASIK surgery of both eyes (~2005) History of arthroscopic knee surgery (~2007) History of hernia repair (~2016) Family History Father History of heart disease Mother Cancer Congestive heart failure Social History household members: none Smoking Status: Current some day smoker alcohol intake: current Discharge Assessment & Plan Assessment and Plan Assessment: 1. Influenza a, present on admission and improved. 2. Probable secondary bacterial pneumonia, present on admission and improved. 3. Acute hypoxic respiratory failure, present on admission and resolved. 3. Possible T7 compression fracture versus other acute process, present on admission and active. Plan of Treatment: Discharge home, Levaquin 750 daily for 5 additional days. Follow up with PCP within a week. Readdress abnormality of T7 on imaging with consideration of an outpatient MRI at some point. This was asymptomatic care, he had no pain. Discharge Plan Discharge Plan Patient Disposition: Home Provider Discharge Comment: Stable for discharge home, we will give an additional 5 days of antibiotics. Discharge orders & Medications Prescriptions: New levofloxacin 750 mg tablet 750 mg PO DAILY Qty: 5 0RF Continued benzonatate 200 mg capsule 200 mg PO BID PRN (Reason: cough) Qty: 30 0RF Follow up/Referrals: Balta Ramirez MD [Primary Care Provider] - Discharge Health Status Multidrug resistant organism: No MDRO Diet/Activity/Treatments Diet: Regular Activity: As tolerated. Visit Report/Discharge Packet Instructions: DI for Pneumonia -- Adult, DI for Influenza -- Adult Stand Alone Forms: Patient Portal/API Discharge Data Primary Care Provider: Balta Ramirez Quality MIPS - DC The patient has a history of heart transplant or Left Ventricular Assist Device (LVAD). If yes, STOP here.: No The patient has current or prior documentation of left ventricular ejection fraction (LVEF) less than or equal to 40%, or moderate or severely depressed left ventricular systolic function.: No
--- NOTE | 2024-11-13 16:10 | PC.NURSE ---
Assumed care of pt at 1200. Pt agreeable to discharge. IV discontinued, education provided, incentive spirometry given to pt for home use, pt ambulated with PCT and adult son to private vehilce at approximately 1605.
== END 2024-11-13 16:05 | disposition home or self-care (01) | DRG 193 ==
LOC: ED 20:17 → AC 20:17
PROVIDERS: Emergency Medicine; Admitting Provider Family Medicine; Emergency Provider Emergency Medicine; PCP Internal Medicine; Referring Provider Emergency Medicine; Visit Provider Hospitalist
DX: J10.08 Influenza due to other identified influenza virus with other specified pneumonia (principal); J96.01 Acute respiratory failure with hypoxia; M48.54XA Collapsed vertebra, not elsewhere classified, thoracic region, initial encounter for fracture; J15.9 Unspecified bacterial pneumonia; F17.200 Nicotine dependence, unspecified, uncomplicated
CPT/HCPCS: 36415; 71045; 71275; 80053; 83605; 83880; 84484; 85025; 85610; 87040; 93005; 94762; 96365; 99284; 99285; J0696; J1650; J1956; J7613; Q9967